=== PATIENT | male | born 1940 ===

== ENCOUNTER 2016-10-19 09:35 | Emergency (ER) | payer MEDICARE ==
[2016-10-19 09:36] VITALS: BMI 26.2
[2016-10-19 09:40] VITALS: TEMP 97.3
[2016-10-19 09:54] VITALS: RESP 18
--- NOTE | 2016-10-19 11:58 | ED PDOC ---
HPI: General Adult Time Seen by Provider: 10/19/16 09:49 Chief Complaint (Nursing): Back Pain Chief Complaint (Provider): Back Pain History Per: Patient History/Exam Limitations: no limitations Onset/Duration Of Symptoms: Days (x1 month) Current Symptoms Are (Timing): Still Present Additional Complaint(s): 76 y/o male presents to the emergency department with a complaint of intermittent pain to the right upper back and right posterior rib x1 month. Patient was prescribed an outpatient skeletal survey on 10/12/2016 for admission of multiple myeloma. Evluated by Dr. Padgett. PMD: Dr. William Padgett MD Past Medical History Reviewed: Historical Data, Nursing Documentation, Vital Signs Vital Signs: Last Vital Signs Temp 97.3 F L 10/19/16 09:50 Pulse 70 10/19/16 09:50 Resp 18 10/19/16 09:50 BP 167/74 H 10/19/16 09:50 Pulse Ox 98 10/19/16 12:51 - Medical History PMH: Anemia, Arthritis, Back Problems, HTN Denies: CHF, COPD, Hypercholesterolemia, Hypothyroidism, Chronic Kidney Disease, Rheumatoid Arthritis - Family History Family History: States: Unknown Family Hx - Social History Current smoker - smoking cessation education provided: No Alcohol: None Drugs: Denies - Home Medications Home Medications: Ambulatory Orders Medication Instructions Recorded Losartan [Cozaar] 100 mg PO DAILY 01/02/16 Calcium Carbonate/Vitamin D3 1 each PO DAILY 06/24/16 [Calcium 600 + Vit D Tablet] Aspirin [Aspirin EC] 1 tab PO DAILY 10/12/16 Lenalidomide [Revlimid] 1 tab PO DAILY 10/12/16 Acetaminophen with Codeine 1 tab PO Q6H PRN #10 tab 10/19/16 [Tylenol with Codeine No. 3 300 mg-30 mg] - Allergies Allergies/Adverse Reactions: Allergies Allergy/AdvReac Type Severity Reaction Status Date / Time tramadol Allergy NAUSEA Verified 10/12/16 11:43 Review of Systems ROS Statement: Except As Marked, All Systems Reviewed And Found Negative Musculoskeletal: Positive for: Back Pain (Right upper region), Other (right posterior rib pain) Physical Exam - Reviewed Nursing Documentation Reviewed: Yes Vital Signs Reviewed: Yes - Physical Exam Appears: Positive for: Non-toxic, No Acute Distress Head Exam: Positive for: ATRAUMATIC, NORMOCEPHALIC Skin: Positive for: Normal Color, Warm, Dry Cardiovascular/Chest: Positive for: Regular Rate, Rhythm. Negative for: Murmur Respiratory: Positive for: Normal Breath Sounds. Negative for: Accessory Muscle Use, Wheezing, Respiratory Distress Back: Positive for: Other (Tenderness to the right upper back and right lateral rib. No point tenderness. No deformity. ) Neurologic/Psych: Positive for: Alert, Oriented - ECG O2 Sat by Pulse Oximetry: 98 (RA) Pulse Ox Interpretation: Normal - Other Rad Skeletal survey X-Ray: Read By Radiologist (Re- demonstration of scattered foci of hypodensity consistent with the patient's history of multiple myeloma. Multiple compression deformity in the lumbar spine likely old. Diffuse osteopenia.) Medical Decision Making Medical Decision Making: Time: 9:49 Initial impression: Musculoskeletal pain Initial plan: --Bone Survey Complete --Revaluation Time: 12:32 --Bone Osseous Survey FINDINGS: Again seen are small foci of lucency in the skull. Foci of lucency are also seen in the spine. Multiple compression deformity in the lumbar spine. Diffuse osteopenia is again seen. IMPRESSION: Re- demonstration of scattered foci of hypodensity consistent with the patient' s history of multiple myeloma. Multiple compression deformity in the lumbar spine likely old. Diffuse osteopenia. --Spoke to Dr. Padgett, about skeletal survey that was completed as an outpatient. Agrees with discharge home with no acute findings Time: 12:43 Upon provider reevaluation patient is feeling better, is medically stable, and requires no further treatment in the ED at this time. Patient will be discharged home. Counseling was provided and all questions were answered regarding diagnosis and need for follow up with Dr. Dayron WOMACK. There is agreement to discharge plan. Return if symptoms persist or worsen. Clinical Impression:Musculoskeletal pain Pt given copy of XR report. [place] [employer] checked, last narcotic Rx 03/16/16. Scribe Attestation: Documented by Phuong Yap, acting as a scribe for Samanta Jerry MD. Provider Scribe Attestation: All medical record entries made by the Scribe were at my direction and personally dictated by me. I have reviewed the chart and agree that the record accurately reflects my personal performance of the history, physical exam, medical decision making, and the department course for this patient. I have also personally directed, reviewed, and agree with the discharge instructions and disposition. Disposition - Clinical Impression Clinical Impression: Musculoskeletal pain - Patient ED Disposition Is Patient to be Admitted: No - Disposition Referrals: Reilly Padgett MD [Staff Provider] - Disposition: Routine/Home Disposition Time: 12:43 Condition: IMPROVED Prescriptions: Acetaminophen with Codeine [Tylenol with Codeine No. 3 300 mg-30 mg] 1 tab PO Q6H PRN #10 tab PRN Reason: Pain, Severe (8-10) Instructions: Musculoskeletal Pain (ED) Print Language: DANISH
--- NOTE | 2016-10-19 12:34 | RAD ---
PROCEDURE: Bone survey HISTORY: R rib pain, h/o multiple myeloma COMPARISON: Comparison is made to the previous study dated 01/02/2016 TECHNIQUE: X-ray of the scalp spine chest and upper and lower extremities were obtained. FINDINGS: Again seen are small foci of lucency in the skull. Foci of lucency are also seen in the spine. Multiple compression deformity in the lumbar spine. Diffuse osteopenia is again seen. IMPRESSION: Re- demonstration of scattered foci of hypodensity consistent with the patient's history of multiple myeloma. Multiple compression deformity in the lumbar spine likely old. Diffuse osteopenia.
[2016-10-19 13:06] VITALS: BP 150/70; PULSE 72; O2SAT 99
== END 2016-10-19 12:55 | disposition home or self-care (01) ==
LOC: H.ER 09:35
DX: M54.9 Dorsalgia, unspecified (principal); C90.00 Multiple myeloma not having achieved remission; I10 Essential (primary) hypertension; M79.1 Myalgia